=== PATIENT | female | born 1970 | race Caucasian/White ===

== ENCOUNTER 2017-12-28 11:10 | Emergency (ER) | payer BC ==
[2017-12-28] MEDS ORDERED: DIPH/PERTUSS(ACELL)/TETANUS VAC/PF 0.5 ML SYR (>=10YO) IM ONE (11:28)
[2017-12-28] MEDS ORDERED: OXYCODONE HCL IR 5 MG TABLET PO ONE (11:29)
--- NOTE | 2017-12-28 11:29 | ER Document Report ---
ED Medical Screen (RME) - General Chief Complaint: Puncture Wound Stated Complaint: LEFT FOOT INJURY Time Seen by Provider: 12/28/17 11:22 Notes: RAPID MEDICAL EVALUATION DISCLOSURE I have seen this patient as part of a Rapid Medical Evaluation and, if applicable, placed any initially appropriate orders. The patient will be seen and fully evaluated, including a full history and physical exam, by a provider ( in Main ED or Fast Track) when a room becomes available. 47-year-old female here with complaints of left foot pain that started after she dropped a knife on her foot 2 hours ago. Daughter is in nursing school and applied lidocaine jelly and wrapped to the foot with Chan wrap. They report her toes have started to turn blue and become cold. Her tetanus is not up-to-date. EXAM Laceration to dorsal surface left foot Toes mildly cool - Related Data Allergies/Adverse Reactions: epinephrine Adverse Reaction (Verified 12/28/17 11:15) Tachycardia IV dye Allergy (Uncoded 12/28/17 11:15) Past Medical History - Social History Frequency of alcohol use: Rare Drug Abuse: Marijuana Renal/ Medical History: Denies: Hx Peritoneal Dialysis Physical Exam - Vital signs Vitals: Temp Pulse Resp BP Pulse Ox 98.1 F 105 H 16 151/94 H 100 12/28/17 11:17 12/28/17 11:17 12/28/17 11:17 12/28/17 11:17 12/28/17 11:17 Course - Vital Signs Vital signs: Temp Pulse Resp BP Pulse Ox 98.1 F 105 H 16 151/94 H 100 12/28/17 11:17 12/28/17 11:17 12/28/17 11:17 12/28/17 11:17 12/28/17 11:17
--- NOTE | 2017-12-28 11:55 | ER Document Report ---
ED Wound - General Chief Complaint: Puncture Wound Stated Complaint: LEFT FOOT INJURY Time Seen by Provider: 12/28/17 11:22 Mode of Arrival: Ambulatory Information source: Patient - Related Data Allergies/Adverse Reactions: epinephrine Adverse Reaction (Verified 12/28/17 11:15) Tachycardia IV dye Allergy (Uncoded 12/28/17 11:15) Past Medical History - Social History Smoking Status: Never Smoker Frequency of alcohol use: Rare Drug Abuse: Marijuana Patient has suicidal ideation: No Patient has homicidal ideation: No Renal/ Medical History: Denies: Hx Peritoneal Dialysis Physical Exam - Vital signs Vitals: Temp Pulse Resp BP Pulse Ox 98.1 F 105 H 16 151/94 H 100 12/28/17 11:17 12/28/17 11:17 12/28/17 11:17 12/28/17 11:17 12/28/17 11:17 Interpretation: Hypertensive, Tachycardic. No: Tachypneic Course - Vital Signs Vital signs: Temp Pulse Resp BP Pulse Ox 98.1 F 105 H 16 151/94 H 100 12/28/17 11:17 12/28/17 11:17 12/28/17 11:17 12/28/17 11:17 12/28/17 11:17
--- NOTE | 2017-12-28 12:17 | RADIOLOGY REPORT (SQ) ---
EXAM DESCRIPTION: FOOT LEFT COMPLETE COMPLETED DATE/TIME: 12/28/2017 12:08 pm REASON FOR STUDY: knife puncture; eval fracture COMPARISON: None. NUMBER OF VIEWS: Three views. TECHNIQUE: AP, lateral and oblique radiographic images acquired of the left foot. LIMITATIONS: None. FINDINGS: MINERALIZATION: Normal. BONES: No acute fracture or dislocation. No worrisome bone lesions. JOINTS: No effusions. SOFT TISSUES: Dorsal soft tissue injury. No foreign body. OTHER: No other significant finding. IMPRESSION: SOFT TISSUE INJURY WITHOUT FRACTURE. TECHNICAL DOCUMENTATION: JOB ID: [id number] [employer]- All Rights Reserved Reading location - IP/workstation name: [email or web address]
[2017-12-28] MEDS ORDERED: LIDOCAINE 1% INJ-PF (10 MG/ML) 30 ML SDV INJ ONE (12:19)
--- NOTE | 2017-12-28 12:26 | ER Document Report ---
ED Wound - General Chief Complaint: Puncture Wound Stated Complaint: LEFT FOOT INJURY Time Seen by Provider: 12/28/17 11:22 Mode of Arrival: Ambulatory - HPI Patient complains to provider of: Laceration Occurred: Just prior to arrival Onset/Duration: Sudden Quality of pain: Sharp Severity: Moderate Context: Injury - DROPPED KNIFE, BLADE STRUCK FOOT Skin Temperature: Warm Skin Color: Normal Capillary refill: < 3 seconds Sensations intact: Yes Distal pulses present: Yes Associated Symptoms: None - Related Data Allergies/Adverse Reactions: epinephrine Adverse Reaction (Verified 12/28/17 11:15) Tachycardia IV dye Allergy (Uncoded 12/28/17 11:15) Past Medical History - General Information source: Patient - Social History Smoking Status: Never Smoker Cigarette use (# per day): No Chew tobacco use (# tins/day): No Frequency of alcohol use: Rare Drug Abuse: Marijuana Lives with: Family - VISITING, FROM [place] Family History: Reviewed & Not Pertinent Patient has suicidal ideation: No Patient has homicidal ideation: No - Past Medical History Cardiac Medical History: Reports: Hx Hypertension Pulmonary Medical History: Reports: None Neurological Medical History: Reports: None Endocrine Medical History: Reports: None Renal/ Medical History: Reports: None. Denies: Hx Peritoneal Dialysis Malignancy Medical History: Reports: None GI Medical History: Reports: None Musculoskeltal Medical History: Reports Hx Arthritis Psychiatric Medical History: Reports: None Past Surgical History: Reports: Hx Orthopedic Surgery Review of Systems - Review of Systems Constitutional: No symptoms reported EENT: No symptoms reported Cardiovascular: No symptoms reported Respiratory: No symptoms reported Gastrointestinal: No symptoms reported Musculoskeletal: See HPI Skin: See HPI Neurological/Psychological: No symptoms reported Physical Exam - Vital signs Vitals: Temp Pulse Resp BP Pulse Ox 98.1 F 105 H 16 151/94 H 100 12/28/17 11:17 12/28/17 11:17 12/28/17 11:17 12/28/17 11:17 12/28/17 11:17 Interpretation: Hypertensive, Tachycardic. No: Tachypneic - General General appearance: Appears well, Alert In distress: None - HEENT Head: Normocephalic Eyes: Normal Conjunctiva: Normal Ears: Normal Nasal: Normal Mouth/Lips: Normal Mucous membranes: Normal - Respiratory Respiratory status: No respiratory distress - Cardiovascular Rhythm: Regular Normal capillary refill: Yes - Abdominal Inspection: Normal - Extremities General upper extremity: Normal inspection General lower extremity: No: Normal inspection - L. FOOT (SEE BELOW) Foot: Laceration - 1.8 cm, DORSALLY OVER 1st MT, Other - ACTIVE EXTENSION OF GREAT TOE IMPAIRED - Neurological Neuro grossly intact: Yes Cognition: Normal Orientation: AAOx4 - Psychological Associated symptoms: Normal affect, Normal mood - Skin Skin Temperature: Warm Skin Moisture: Dry Skin Color: Normal Skin Turgor: Elastic Skin irregularity: Laceration - SEE ABOVE Course - Vital Signs Vital signs: Temp Pulse Resp BP Pulse Ox 98.1 F 105 H 16 151/94 H 100 12/28/17 11:17 12/28/17 11:17 12/28/17 11:17 12/28/17 11:17 12/28/17 11:17 Discharge - Discharge Instructions: Laceration Care ([facility]), Tendon Laceration Referral ([facility]), Elevate the Injury ([facility]), Prophylactic Antibiotic ([facility]), Tetanus Immunization Given ([facility] ) Additional Instructions: NO WEIGHT BEARING ON LEFT FOOT. MEDS DIRECTED. FOLLOW UP WITH ORTHOPEDIC SURGEON OR FINANCIAL ECONOMIST WHEN YOU RETURN HOME, YOU WILL NEED TO HAVE ELECTIVE SURGERY TO REPAIR THE LACERATED TENDON IN YOUR FOOT. Prescriptions: Hydrocodone/Acetaminophen [[place] 5-325 mg Tablet] 1 tab PO Q4HP PRN #14 tablet PRN Reason: For Pain Cephalexin Monohydrate [Keflex 500 mg Capsule] 500 mg PO QID #20 capsule
[2017-12-28 13:57] VITALS: BP 138/83
== END 2017-12-28 14:01 | disposition home or self-care (01) ==
LOC: ER 11:10
PROC: 0HQNXZZ Repair Left Foot Skin, External Approach (ICD-10-PCS; principal; 2017-12-28)
DX: S91.312A Laceration without foreign body, left foot, initial encounter (principal); W26.0XXA Contact with knife, initial encounter; Z23 Encounter for immunization; I10 Essential (primary) hypertension
CPT/HCPCS: 99283; 90471; 73630; 90715; 12001; J3490